=== PATIENT | female | born 1985 | race Caucasian/White ===

== ENCOUNTER 2017-05-15 12:43 | Emergency (ER) | payer MEDICAID ==
[~2017-05-15] VITALS: Ht 165.1 cm; Wt 109.5 kg
[2017-05-15 12:59] VITALS: BP 118/79
[2017-05-15 14:20] LABS: HEMATOCRIT 40.9 % (34.6-47.8); HEMOGLOBIN 14.1 g/dL (11.7-16.4); WHITE BLOOD COUNT 13.2 x10^3/uL (3.4-10)
[2017-05-15 14:33] LABS: BLOOD UREA NITROGEN 9 mg/dL (7-18)
[2017-05-15 14:53] LABS: ASPARTATE AMINO TRANSFERASE 17 U/L (15-37)
== END 2017-05-15 17:44 | disposition home or self-care (01) ==
LOC: EDBD 12:43 → ED 16:36
DX: O23.41 Unspecified infection of urinary tract in pregnancy, first trimester (principal); Z3A.10 10 weeks gestation of pregnancy; N89.8 Other specified noninflammatory disorders of vagina
CPT/HCPCS: 36415; 76801; 80053; 81001; 84702; 85025; 86901; 87086; 87210; 87491; 87591; 87808